=== PATIENT | female | born 1995 | race Caucasian/White ===

== ENCOUNTER 2016-11-10 13:03 | Emergency (ER) | payer SELFPAY ==
[~2016-11-10] VITALS: Ht 170.2 cm; Wt 69.5 kg
[2016-11-10 13:06] VITALS: Ht 170.2 cm; Wt 69.5 kg
[2016-11-10] MEDS ORDERED: ALBUTEROL 0.083% (NEB) 2.5 MG/3 ML AMP HHN STA (13:15)
[2016-11-10] MEDS ORDERED: IPRATROPIUM (NEB) 0.5 MG/2.5 ML AMP HHN ONE (13:30)
[2016-11-10] MEDS ORDERED: predniSONE 20 MG TAB PO ONE (13:30)
[2016-11-10] MEDS ORDERED: PRED20TA PO (13:53)
--- NOTE | 2016-11-10 13:56 | ERD ---
ER Documentation Chief Complaint Date/Time DATE: 11/10/16 TIME: 13:53 Chief Complaint asthma attack x 30 mins o2 sat is 96% HPI This 21-year-old female presented with an asthma exacerbation. She has been having shortness of breath all day with the last 30 minutes it is worse. She feels short of breath. She has a mild cough. She has had no fevers or chills recently. States that she is otherwise healthy. She has a full albuterol inhaler at home and it was helping but not completely. ROS All systems reviewed and are negative except as per history of present illness. Medications Home Meds Active Scripts Prednisone* (Prednisone*) 20 Mg Tab, 40 MG PO DAILY for 3 Days, TAB Prov:ILENE GALVEZ DO 11/10/16 PMhx/Soc Hx Respiratory Disorders: Yes (asthma ) Hx Cardiac Disorders: No Hx Psychiatric Problems: No Hx Miscellaneous Medical Probl: No Hx Alcohol Use: No Hx Substance Use: No Hx Tobacco Use: No Smoking Status: Never smoker Physical Exam Vitals Vital Signs Date Time Temp Pulse Resp B/P Pulse Ox O2 Delivery O2 Flow Rate FiO2 11/10/16 13:26 67 26 98 21 11/10/16 13:06 98.6 86 17 116/65 99 Physical Exam Const: [] Mild distress, tachypnea Resp: Bilateral expiratory wheezing, tachypnea, mild accessory muscle use Cardio: Regular mild tachycardia ythm, no murmurs Skin: No petechiae or rashes Back: No midline or flank tenderness Ext: No cyanosis, or edema Neur: Awake and alert Psych: Normal Mood and Affect Results 24 hrs Current Medications Medications (Trade) Dose Ordered Sig/Daniel Route PRN Reason Start Time Stop Time Status Last Admin Dose Admin Albuterol (Proventil 0.083% (Neb)) 10 mg ONCE STAT HHN 11/10/16 13:15 11/10/16 13:17 DC 11/10/16 13:26 Ipratropium [place]rington (Atrovent 0.02% (Neb)) 1 mg ONCE ONCE HHN 11/10/16 13:30 11/10/16 13:31 DC 11/10/16 13:26 Prednisone (Prednisone) 60 mg ONCE ONCE PO 11/10/16 13:30 11/10/16 13:31 DC Procedures/MDM Moderate asthma attack. Patient is not sure what her trigger was this time. She usually does okay with her albuterol rescue inhaler no other treatment. She was given albuterol and Atrovent 10 in 1 nebulized breathing treatment. She is also given prednisone 60 tab. This is able to vince the asthma exacerbation she had no further wheezing or distress afterward. I am discharging her with 3 more days of prednisone as well as primary care follow- up. Return precautions are given. Departure Diagnosis: Primary Impression: Asthma attack Condition: Stable Patient Instructions: Asthma, Acute (Adult) Referrals: REPLACED BY [facility] YOU HAVE RECEIVED A MEDICAL SCREENING EXAM AND THE RESULTS INDICATE THAT YOU DO NOT HAVE A CONDITION THAT REQUIRES URGENT TREATMENT IN THE EMERGENCY DEPARTMENT. FURTHER EVALUATION AND TREATMENT OF YOUR CONDITION CAN WAIT UNTIL YOU ARE SEEN IN YOUR DOCTORS OFFICE WITHIN THE NEXT 1-2 DAYS. IT IS YOUR RESPONSIBILITY TO MAKE AN APPOINTMENT FOR FOLOW-UP CARE. IF YOU HAVE A PRIMARY DOCTOR --you should call your primary doctor and schedule an appointment IF YOU DO NOT HAVE A PRIMARY DOCTOR YOU CAN CALL OUR PHYSICIAN REFERRAL HOTLINE AT IF YOU CAN NOT AFFORD TO SEE A PHYSICIAN YOU CAN CHOSE FROM THE FOLLOWING [facility] [place] [address] [facility] [address] [facility] [facility] [address] [facility] [facility] [address] [facility]. [facility] [address] [facility]. [facility]. [address] Additional Instructions: Call your primary care doctor TOMORROW for an appointment during the next 2-3 days.See the doctor sooner or return here if your condition worsens before your appointment time. ILENE GALVEZ DO Nov 10, 2016 13:56
[2016-11-10 14:37] VITALS: BP 135/80; PULSE 70; RESP 17; TEMP 98.2
== END 2016-11-10 14:38 | disposition home or self-care (01) ==
LOC: E/R 13:03
DX: J45.901 Unspecified asthma with (acute) exacerbation (principal)
CPT/HCPCS: 94644